=== PATIENT | female | born 1955 | race Caucasian/White ===

== ENCOUNTER 2020-01-22 12:48 | Outpatient (CLI) | payer MEDICARE, MEDICAID ==
--- NOTE | 2020-02-19 10:14 | MMO ---
Bilateral MAMMO Bilat Screen [facility]. CLINICAL HISTORY: Patient is 64 years old and is seen for screening. The patient has no family history of breast cancer. The patient has no personal history of cancer. VIEWS: The views performed were: bilateral craniocaudal with tomosynthesis and bilateral mediolateral oblique with tomosynthesis. This study has been interpreted with the assistance of computer-aided detection. MAMMOGRAM FINDINGS: There are scattered fibroglandular densities. There are no suspicious masses, suspicious calcifications, or new areas of architectural distortion. IMPRESSION: THERE IS NO MAMMOGRAPHIC EVIDENCE OF MALIGNANCY. A ROUTINE FOLLOW-UP MAMMOGRAM IN 1 YEAR IS RECOMMENDED. THE RESULTS OF THIS EXAM WERE SENT TO THE PATIENT. ACR BI-RADS Category 1 - Negative MAMMOGRAPHY NOTE: 1. A negative mammogram report should not delay a biopsy if a dominant of clinically suspicious mass is present. 2. Approximately 10% to 15% of breast cancers are not detected by mammography. 3. Adenosis and dense breasts may obscure an underlying neoplasm. Reported by: WICHO IVY MD Electonically Signed: [id number]
== END 2020-01-22 12:49 | disposition home or self-care (01) ==
LOC: BICMAMMO 12:48
PROVIDERS: ATTEND Registered Nurse
DX: Z12.31 Encounter for screening mammogram for malignant neoplasm of breast (principal)
CPT/HCPCS: 77063; 77067

== ENCOUNTER 2020-12-03 11:00 | Inpatient (IN) | payer MEDICARE, MEDICAID ==
[2020-12-21] MEDS ORDERED: Gabapentin 300 MG CAP ONE (10:09)
[2020-12-21] MEDS ORDERED: Acetaminophen 500 MG TAB ONE (10:09)
[2020-12-21] MEDS ORDERED: cefOXitin Sodium/Dextrose 2 GM/50 ML BAG ONE ×3 (10:09→18:12)
[2020-12-21] MEDS ORDERED: Ketorolac Tromethamine 30 MG/ML VIAL ONE ×2 (11:29→14:34)
[2020-12-21] MEDS ORDERED: CeleCOXIB 100 MG CAP ONE (11:33)
[2020-12-21] MEDS ORDERED: Fentanyl 100 MCG/2 ML VIAL ONE ×2 (12:48→18:08)
[2020-12-21] MEDS ORDERED: Midazolam HCl 2 mg/2 ml Vial ONE ×2 (12:48→13:40)
[2020-12-21] MEDS ORDERED: Fentanyl 250 MCG/5 ML VIAL ONE (13:40)
[2020-12-21] MEDS ORDERED: Lidocaine 2% Jelly 5 ML TUBE ONE (13:41)
[2020-12-21] MEDS ORDERED: SUGAMMADEX SODIUM 500 MG/5 ML VIAL ONE (13:42)
[2020-12-21] MEDS ORDERED: Lidocaine 1% w/Epinephrine 1:100K 20 ML VIAL ONE ×3 (13:53→19:29)
[2020-12-21] MEDS ORDERED: Bupivacaine 0.25% HCL 30 ML VIAL ONE (13:53)
[2020-12-21] MEDS ORDERED: Famotidine/PF 20 mg/2ml Vial ONE (14:05)
[2020-12-21] MEDS ORDERED: Vecuronium 10 MG VIAL ONE (14:34)
[2020-12-21] MEDS ORDERED: Lidocaine 1% PF 5 ML VIAL ONE (14:34)
[2020-12-21] MEDS ORDERED: Ondansetron PF 4 MG/2 ML Vial ONE (14:34)
[2020-12-21] MEDS ORDERED: PHENYLEPHRINE-NS 100 MCG/ML 10 ML SYRINGE ONE ×2 (14:34→18:30)
[2020-12-21] MEDS ORDERED: ePHEDrine Sulfate 50 MG/10 ML VIAL ONE (14:34)
[2020-12-21] MEDS ORDERED: Bupivacaine HCl 0.5%/Epinephrine 1:200,000/PF 30 ml Vial ONE (14:34)
[2020-12-21] MEDS ORDERED: Rocuronium Bromide 10 MG/ML (10ML VIAL) ONE (14:34)
[2020-12-21] MEDS ORDERED: Dexamethasone 20 MG/5 ML VIAL ONE (14:34)
[2020-12-21] MEDS ORDERED: PROPOFOL 200 MG/20 ML VIAL ONE (14:34)
[2020-12-21] MEDS ORDERED: SUGAMMADEX SODIUM 200 MG/2 ML VIAL ONE (19:51)
[2020-12-21] MEDS ORDERED: Promethazine HCl 25 MG/ML VIAL SLOW IVP PRN (20:24)
[2020-12-21] MEDS ORDERED: Promethazine HCl 25 MG/ML VIAL IM PRN ×2 (20:24→20:34)
[2020-12-21] MEDS ORDERED: Ondansetron HCl/PF 4 MG/2 ML Vial IVP PRN (20:24)
[2020-12-21] MEDS ORDERED: PACU-Morphine 4MG/ML VIAL SLOW IVP PRN (20:24)
[2020-12-21] MEDS ORDERED: hydrALAZINE 20 MG/ML VIAL SLOW IVP PRN (20:34)
[2020-12-21] MEDS ORDERED: Morphine 4 MG/ML VIAL SLOW IVP PRN ×2 (20:34→20:49)
[2020-12-21] MEDS ORDERED: Ondansetron PF 4 MG/2 ML Vial IVP PRN (20:34)
[2020-12-21] MEDS: Famotidine 20 MG TAB PO SCH (22:11)
[2020-12-21] MEDS: Atorvastatin Calcium 40 MG TAB PO SCH (22:11)
[2020-12-21] MEDS: metFORMIN 500 MG TAB PO SCH (22:11)
[2020-12-21] MEDS: D5 1/2 NS w/20 mEq KCL 1,000 ML IV SCH (22:13)
[2020-12-21] MEDS: Famotidine/PF 20 mg/2ml Vial SLOW IVP SCH (22:14)
[2020-12-21] MEDS: Ketorolac Tromethamine 30 MG/ML VIAL IVP SCH (23:47)
[2020-12-21 23:58] VITALS: BMI 29.9
[2020-12-22] MEDS: Ketorolac Tromethamine 30 MG/ML VIAL IVP SCH ×3 (06:08→17:50)
[2020-12-22] MEDS: D5 1/2 NS w/20 mEq KCL 1,000 ML IV SCH (06:08)
[2020-12-22] MEDS: HYDROcodone/Acetaminophen 7.5/325 mg Tablet PO PRN (06:24)
[2020-12-22] MEDS ORDERED: Dextrose 5% in Water 1,000 ML IV PRN ×2 (06:45→07:31)
[2020-12-22] MEDS ORDERED: Dextrose 50% Abboject 50 ML SYRINGE IVP PRN (06:45)
[2020-12-22] MEDS ORDERED: Insulin Regular 300 UNITS/3 ML VIAL SC PRN (06:45)
[2020-12-22 06:55] LABS: #Lymphocytes 0.7 thou/uL (1.20-3.40); #Monocytes 0.9 thou/uL (0.11-0.59); #Neutrophils 10.4 thou/uL (1.40-6.50); %Eosinophils 0.1 % (0.0-10.0); %Lymphocytes 5.9 % (21.0-51.0); %Monocytes 7.5 % (0.0-10.0); %Neutrophils 86.6 % (42.0-75.0); Hemoglobin 11.3 g/dL (12.0-16.0); Mean Corpuscular Hemoglobin 30.2 pg (27.0-31.0); Mean Corpuscular Volume 91.4 fL (78.0-98.0); Mean Platelet Volume 7.4 fL (7.4-10.4); Platelet Count 235 thou/uL (130-400); Red Blood Cell (RBC) Count 3.75 mill/uL (4.20-5.40)
[2020-12-22] MEDS: Insulin Regular 300 UNITS/3 ML VIAL SC PRN ×3 (07:13→16:45)
[2020-12-22 07:15] LABS: Anion Gap 13 mmol/L (10-20); BUN (Urea Nitrogen) 12 mg/dL (9.8-20.1); Calc. Creatinine Clearance 84 mL/min (70-130); Calcium 8.8 mg/dL (7.8-10.44); Carbon Dioxide 21 mmol/L (23-31); Chloride 106 mmol/L (98-107); Glucose 262 mg/dL (80-115); Potassium 4.7 mmol/L (3.5-5.1); Sodium 135 mmol/L (136-145)
[2020-12-22] MEDS ORDERED: HumaLOG 300 UNITS/3 ML VIAL SC PRN (07:31)
[2020-12-22] MEDS ORDERED: Dextrose 50% Abboject 50 ML SYRINGE SLOW IVP PRN (07:31)
[2020-12-22] MEDS: metFORMIN 500 MG TAB PO SCH ×2 (08:44→20:50)
[2020-12-22] MEDS: Famotidine 20 MG TAB PO SCH ×2 (08:44→20:50)
[2020-12-22] MEDS: Famotidine/PF 20 mg/2ml Vial SLOW IVP SCH ×2 (08:46→20:50)
[2020-12-22] MEDS: Enoxaparin Sodium 40 MG/0.4 ML SYRINGE SC SCH (09:42)
[2020-12-22] MEDS ORDERED: D5 1/2 NS w/20 mEq KCL 1,000 ML IV SCH (17:00)
[2020-12-22] MEDS: Lactated Ringer's 1,000 ML IV SCH (17:51)
[2020-12-22] MEDS: Atorvastatin Calcium 40 MG TAB PO SCH (20:50)
[2020-12-23] MEDS: Ketorolac Tromethamine 30 MG/ML VIAL IVP SCH ×4 (00:41→17:44)
[2020-12-23] MEDS: D5 1/2 NS w/20 mEq KCL 1,000 ML IV SCH (01:52)
[2020-12-23] MEDS: HYDROcodone/Acetaminophen 7.5/325 mg Tablet PO PRN ×2 (05:28→14:35)
[2020-12-23] MEDS: Lactated Ringer's 1,000 ML IV SCH ×2 (05:29→17:45)
[2020-12-23 06:19] LABS: #Eosinphils 0.1 thou/uL (0.0-0.7); #Lymphocytes 0.9 thou/uL (1.20-3.40); #Monocytes 0.6 thou/uL (0.11-0.59); %Basophils 0.3 % (0.0-1.0); %Eosinophils 1.7 % (0.0-10.0); %Monocytes 7.6 % (0.0-10.0); %Neutrophils 78.4 % (42.0-75.0); Hemoglobin 10.2 g/dL (12.0-16.0); Mean Corpuscular HGB CONC 31.9 g/dL (32.0-36.0); Mean Corpuscular Hemoglobin 29.1 pg (27.0-31.0); Mean Platelet Volume 7.1 fL (7.4-10.4); Platelet Count 195 thou/uL (130-400); RBC Distribution Width 13.9 % (11.5-14.5); Red Blood Cell (RBC) Count 3.53 mill/uL (4.20-5.40); White Blood Cell (WBC) Count 7.7 thou/uL (4.8-10.8)
[2020-12-23 06:47] LABS: Anion Gap 9 mmol/L (10-20); Calc. Creatinine Clearance 106 mL/min (70-130); Carbon Dioxide 24 mmol/L (23-31); Chloride 110 mmol/L (98-107); Glucose 136 mg/dL (80-115); Potassium 4.3 mmol/L (3.5-5.1); Sodium 139 mmol/L (136-145)
[2020-12-23 06:56] LABS: BUN (Urea Nitrogen) 7 mg/dL (9.8-20.1)
[2020-12-23] MEDS: Famotidine/PF 20 mg/2ml Vial SLOW IVP SCH ×2 (09:21→21:07)
[2020-12-23] MEDS: metFORMIN 500 MG TAB PO SCH ×2 (09:24→21:07)
[2020-12-23] MEDS: Famotidine 20 MG TAB PO SCH ×2 (09:24→21:07)
[2020-12-23] MEDS: Enoxaparin Sodium 40 MG/0.4 ML SYRINGE SC SCH (11:02)
[2020-12-23] MEDS ORDERED: Lactated Ringer's 1,000 ML IV SCH (18:45)
[2020-12-23] MEDS: Atorvastatin Calcium 40 MG TAB PO SCH (21:07)
[2020-12-24] MEDS: Ketorolac Tromethamine 30 MG/ML VIAL IVP SCH ×2 (00:17→06:01)
[2020-12-24] MEDS: Famotidine 20 MG TAB PO SCH (07:57)
[2020-12-24] MEDS: metFORMIN 500 MG TAB PO SCH (07:57)
[2020-12-24] MEDS: HYDROcodone/Acetaminophen 7.5/325 mg Tablet PO PRN (08:00)
[2020-12-24] MEDS: Famotidine/PF 20 mg/2ml Vial SLOW IVP SCH (08:01)
[2020-12-24 08:23] VITALS: BP 164/87; TEMP 97.4
[2020-12-24] MEDS: Enoxaparin Sodium 40 MG/0.4 ML SYRINGE SC SCH (10:36)
== END 2020-12-24 11:45 | disposition home or self-care (01) | DRG 331 ==
LOC: SURG A 12-21 09:47 → EDSTATUS 12-21 10:45 → SURG B 12-21 21:34
PROVIDERS: ADMIT Specialist; ATTEND Specialist
PROC: 0UT94ZZ Resection of Uterus, Percutaneous Endoscopic Approach (ICD-10-PCS; principal; 2020-12-21)
PROC: 0D1B4Z4 Bypass Ileum to Cutaneous, Percutaneous Endoscopic Approach (ICD-10-PCS; 2020-12-21)
PROC: 0DTP4ZZ Resection of Rectum, Percutaneous Endoscopic Approach (ICD-10-PCS; 2020-12-21)
PROC: 0UT24ZZ Resection of Bilateral Ovaries, Percutaneous Endoscopic Approach (ICD-10-PCS; 2020-12-21)
PROC: 0UT74ZZ Resection of Bilateral Fallopian Tubes, Percutaneous Endoscopic Approach (ICD-10-PCS; 2020-12-21)
PROC: 8E0W4CZ Robotic Assisted Procedure of Trunk Region, Percutaneous Endoscopic Approach (ICD-10-PCS; 2020-12-21)
DX: C20 Malignant neoplasm of rectum (principal); D25.9 Leiomyoma of uterus, unspecified; Z88.1 Allergy status to other antibiotic agents; Z88.8 Allergy status to other drugs, medicaments and biological substances; Z91.018 Allergy to other foods
CPT/HCPCS: 36415; 36416; 80048; 85025; 86850; 86900; 86901; 88305; 88307; 88309; J0690; J0694; J1100; J1650; J1815; J1885; J2250; J2405; J2704; J3010; J3480; S0020; S0028

== ENCOUNTER 2020-12-16 10:49 | Outpatient (CLI) | payer MEDICARE, MEDICAID ==
[2020-12-16 13:40] LABS: #Eosinphils 0.2 10x3/uL (0.0-0.5); #Monocytes 0.6 10x3/uL (0.0-1.1); #Neutrophils 3.7 10x3/uL (1.5-8.4); %Basophils 0.7 % (0.0-2.0); %Eosinophils 3.8 % (0.0-6.0); %Lymphocytes 20.1 % (18.0-47.0); %Monocytes 10.5 % (0.0-10.0); Hemoglobin 11.9 g/dL (12.0-15.5); Mean Corpuscular HGB CONC 32.2 g/dL (32.0-36.0); Mean Corpuscular Hemoglobin 29.5 pg (27.0-33.0); Mean Corpuscular Volume 91.6 fl (81.6-98.3); Mean Platelet Volume 9.4 fl (7.4-10.4); Platelet Count 280 10x3/uL (150-450); RBC Distribution Width 14.6 % (11.5-14.5); Red Blood Cell (RBC) Count 4.04 10x6/uL (3.90-5.03); White Blood Cell (WBC) Count 5.8 10x3/uL (3.5-10.5)
[2020-12-16 14:31] LABS: BHCG - Serum Negative (NEGATIVE)
[2020-12-16 14:32] LABS: Pregs Control Background? CLEAR/WHITE (CLR/WHITE); Pregs Control Bar Appear? YES (CONTROL BAR)
[2020-12-16 14:34] LABS: Anion Gap 14 mmol/L (10-20); BUN (Urea Nitrogen) 13 mg/dL (9.8-20.1); Calc. Creatinine Clearance 0 mL/min (70-130); Calcium 9.6 mg/dL (7.8-10.44); Carbon Dioxide 28 mmol/L (23-31); Chloride 106 mmol/L (98-107); Potassium 4.3 mmol/L (3.5-5.1); Sodium 144 mmol/L (136-145)
[2020-12-16 14:38] LABS: Glucose 53 mg/dL (80-115)
[2020-12-16 20:50] LABS: Hemoglobin A1c 5.5 % (4.0-6.0)
[2020-12-16 21:21] LABS: SARS-CoV-2 PCR by NAA Not Detected (NotDetected)
== END 2020-12-16 10:50 | disposition home or self-care (01) ==
LOC: LABBT 10:49
PROVIDERS: ATTEND Specialist
DX: Z01.818 Encounter for other preprocedural examination (principal); C20 Malignant neoplasm of rectum; Z20.822 Contact with and (suspected) exposure to COVID-19
CPT/HCPCS: 71046; 80048; 83036; 84703; 85025; 86850; 86900; 86901; U0003; U0005; 87635; 93005; 93010

== ENCOUNTER 2021-02-23 05:43 | Inpatient (IN) | payer MEDICARE, MEDICAID ==
[2021-02-22 09:47] VITALS: BMI 29.5
[2021-02-23] MEDS ORDERED: Ketorolac Tromethamine 30 MG/ML VIAL ONE (05:59)
[2021-02-23] MEDS ORDERED: Acetaminophen 500 MG TAB ONE (05:59)
[2021-02-23] MEDS ORDERED: cefOXitin Sodium/Dextrose 2 GM/50 ML BAG ONE (06:00)
[2021-02-23 06:47] LABS: #Eosinphils 0.7 thou/uL (0.0-0.7); #Lymphocytes 1.2 thou/uL (1.20-3.40); #Monocytes 0.5 thou/uL (0.11-0.59); #Neutrophils 3.8 thou/uL (1.40-6.50); %Basophils 0.7 % (0.0-1.0); %Lymphocytes 18.9 % (21.0-51.0); %Monocytes 7.5 % (0.0-10.0); %Neutrophils 61.9 % (42.0-75.0); Hemoglobin 11.7 g/dL (12.0-16.0); Mean Corpuscular HGB CONC 33.2 g/dL (32.0-36.0); Mean Corpuscular Hemoglobin 28.9 pg (27.0-31.0); Mean Corpuscular Volume 87.1 fL (78.0-98.0); Mean Platelet Volume 7.7 fL (7.4-10.4); Platelet Count 282 thou/uL (130-400); RBC Distribution Width 13.5 % (11.5-14.5); Red Blood Cell (RBC) Count 4.05 mill/uL (4.20-5.40); White Blood Cell (WBC) Count 6.2 thou/uL (4.8-10.8)
[2021-02-23 06:55] LABS: Hemoglobin A1c 5.5 % (4.0-6.0)
[2021-02-23 07:08] LABS: ALT (SGPT) 19 U/L (8-55); AST (SGOT) 21 U/L (5-34); Albumin 4.2 g/dL (3.4-4.8); Alkaline Phosphatase 114 U/L (40-110); Anion Gap 12 mmol/L (10-20); BUN (Urea Nitrogen) 5 mg/dL (9.8-20.1); Bilirubin, Total 0.5 mg/dL (0.2-1.2); Calc. Creatinine Clearance 83 mL/min (70-130); Carbon Dioxide 27 mmol/L (23-31); Chloride 106 mmol/L (98-107); Globulin 3.5 g/dL (2.4-3.5); Glucose 97 mg/dL (80-115); Potassium 3.8 mmol/L (3.5-5.1); Protein, Total 7.7 g/dL (5.8-8.1); Sodium 141 mmol/L (136-145)
[2021-02-23] MEDS ORDERED: Midazolam HCl 2 mg/2 ml Vial ONE (07:40)
[2021-02-23] MEDS ORDERED: Fentanyl 100 MCG/2 ML VIAL ONE ×3 (07:40→13:43)
[2021-02-23] MEDS ORDERED: Dexmedetomidine 200 MCG/2 ML VIAL ONE (07:41)
[2021-02-23] MEDS ORDERED: Phenylephrine 10 MG/ML VIAL ONE (07:41)
[2021-02-23] MEDS ORDERED: Bupivacaine HCl 0.5%/Epinephrine 1:200,000/PF 30 ml Vial ONE (08:28)
[2021-02-23] MEDS ORDERED: Lidocaine 1% PF 5 ML VIAL ONE (08:28)
[2021-02-23] MEDS ORDERED: PROPOFOL 200 MG/20 ML VIAL ONE (08:28)
[2021-02-23] MEDS ORDERED: Rocuronium Bromide 10 MG/ML (10ML VIAL) ONE (08:28)
[2021-02-23] MEDS ORDERED: ePHEDrine Sulfate 50 MG/10 ML VIAL ONE (08:28)
[2021-02-23] MEDS ORDERED: Glycopyrrolate 0.2 MG/ML 5 ML SYRINGE ONE (08:28)
[2021-02-23] MEDS ORDERED: Esmolol 100 MG/10 ML VIAL ONE (08:28)
[2021-02-23] MEDS ORDERED: Ondansetron PF 4 MG/2 ML Vial ONE (08:28)
[2021-02-23] MEDS ORDERED: Lidocaine 1% w/Epinephrine 1:100K 20 ML VIAL ONE (08:50)
[2021-02-23] MEDS ORDERED: Morphine 4 MG/ML VIAL SLOW IVP PRN (10:07)
[2021-02-23] MEDS ORDERED: Insulin Regular 300 UNITS/3 ML VIAL SC PRN (10:07)
[2021-02-23] MEDS ORDERED: Morphine 2 MG/ML VIAL SLOW IVP PRN (10:07)
[2021-02-23] MEDS ORDERED: hydrALAZINE 20 MG/ML VIAL SLOW IVP PRN (10:07)
[2021-02-23] MEDS ORDERED: Ondansetron PF 4 MG/2 ML Vial IVP PRN (10:07)
[2021-02-23] MEDS ORDERED: Promethazine HCl 25 MG/ML VIAL IM PRN ×2 (10:07→10:19)
[2021-02-23] MEDS ORDERED: Ondansetron HCl/PF 4 MG/2 ML Vial IVP PRN (10:19)
[2021-02-23] MEDS ORDERED: Promethazine HCl 25 MG/ML VIAL IVPB PRN (10:19)
[2021-02-23] MEDS: Ketorolac Tromethamine 30 MG/ML VIAL IVP SCH ×2 (15:04→17:30)
[2021-02-23] MEDS: Sodium Chloride 0.9% 1,000 ML IV SCH ×2 (15:05→17:35)
[2021-02-23] MEDS: metFORMIN 500 MG TAB PO SCH (17:30)
[2021-02-23] MEDS: Gabapentin 300 MG CAP PO SCH (20:02)
[2021-02-23] MEDS: Famotidine 20 MG TAB PO SCH (20:02)
[2021-02-23] MEDS: Atorvastatin Calcium 40 MG TAB PO SCH (20:02)
[2021-02-23] MEDS: Famotidine/PF 20 mg/2ml Vial SLOW IVP SCH (20:03)
[2021-02-23] MEDS: Enoxaparin Sodium 40 MG/0.4 ML SYRINGE SC SCH (20:03)
[2021-02-24] MEDS: Ketorolac Tromethamine 30 MG/ML VIAL IVP SCH ×5 (00:06→23:47)
[2021-02-24] MEDS: Sodium Chloride 0.9% 1,000 ML IV SCH ×3 (00:12→17:38)
[2021-02-24 06:34] LABS: Anion Gap 11 mmol/L (10-20); BUN (Urea Nitrogen) 5 mg/dL (9.8-20.1); Calc. Creatinine Clearance 95 mL/min (70-130); Calcium 8.7 mg/dL (7.8-10.44); Carbon Dioxide 26 mmol/L (23-31); Chloride 105 mmol/L (98-107); Glucose 113 mg/dL (80-115); Potassium 4.1 mmol/L (3.5-5.1); Sodium 138 mmol/L (136-145)
[2021-02-24 06:41] LABS: #Eosinphils 0.2 thou/uL (0.0-0.7); #Lymphocytes 0.8 thou/uL (1.20-3.40); #Monocytes 0.5 thou/uL (0.11-0.59); %Basophils 0.4 % (0.0-1.0); %Eosinophils 3.7 % (0.0-10.0); %Lymphocytes 13.9 % (21.0-51.0); %Monocytes 8.4 % (0.0-10.0); %Neutrophils 73.6 % (42.0-75.0); Hemoglobin 10.2 g/dL (12.0-16.0); Mean Corpuscular HGB CONC 33.3 g/dL (32.0-36.0); Mean Corpuscular Hemoglobin 29.2 pg (27.0-31.0); Mean Corpuscular Volume 87.8 fL (78.0-98.0); Mean Platelet Volume 7.7 fL (7.4-10.4); Platelet Count 209 thou/uL (130-400); RBC Distribution Width 13.5 % (11.5-14.5); Red Blood Cell (RBC) Count 3.49 mill/uL (4.20-5.40); White Blood Cell (WBC) Count 5.4 thou/uL (4.8-10.8)
[2021-02-24] MEDS: metFORMIN 500 MG TAB PO SCH ×2 (09:25→17:38)
[2021-02-24] MEDS: Aspirin 81 mg Enteric Coated Tablet PO SCH (09:25)
[2021-02-24] MEDS: Famotidine 20 MG TAB PO SCH ×2 (09:25→20:32)
[2021-02-24] MEDS: Famotidine/PF 20 mg/2ml Vial SLOW IVP SCH ×2 (09:27→20:33)
[2021-02-24] MEDS ORDERED: HYDROcodone/Acetaminophen 7.5/325 mg Tablet PO PRN (09:55)
[2021-02-24] MEDS: HYDROcodone/Acetaminophen 7.5/325 mg Tablet PO PRN ×2 (10:22→20:31)
[2021-02-24] MEDS: Gabapentin 300 MG CAP PO SCH (20:32)
[2021-02-24] MEDS: Atorvastatin Calcium 40 MG TAB PO SCH (20:33)
[2021-02-24] MEDS: Enoxaparin Sodium 40 MG/0.4 ML SYRINGE SC SCH (20:33)
[2021-02-25] MEDS: Ketorolac Tromethamine 30 MG/ML VIAL IVP SCH ×2 (05:33→12:25)
[2021-02-25] MEDS ORDERED: Sodium Chloride 0.9% 1,000 ML IV SCH (07:46)
[2021-02-25] MEDS: HYDROcodone/Acetaminophen 7.5/325 mg Tablet PO PRN (07:46)
[2021-02-25] MEDS: Famotidine 20 MG TAB PO SCH (07:47)
[2021-02-25] MEDS: metFORMIN 500 MG TAB PO SCH (07:47)
[2021-02-25] MEDS: Sodium Chloride 0.9% 1,000 ML IV SCH ×2 (07:49→07:51)
[2021-02-25] MEDS: Aspirin 81 mg Enteric Coated Tablet PO SCH (08:01)
[2021-02-25] MEDS: Famotidine/PF 20 mg/2ml Vial SLOW IVP SCH (08:01)
[2021-02-25 08:19] LABS: #Eosinphils 0.2 thou/uL (0.0-0.7); #Lymphocytes 0.8 thou/uL (1.20-3.40); #Monocytes 0.4 thou/uL (0.11-0.59); #Neutrophils 4.6 thou/uL (1.40-6.50); %Basophils 0.2 % (0.0-1.0); %Eosinophils 3.8 % (0.0-10.0); %Lymphocytes 13.5 % (21.0-51.0); %Monocytes 7.1 % (0.0-10.0); %Neutrophils 75.4 % (42.0-75.0); Hemoglobin 10.1 g/dL (12.0-16.0); Mean Corpuscular HGB CONC 33.6 g/dL (32.0-36.0); Mean Corpuscular Hemoglobin 29.3 pg (27.0-31.0); Mean Corpuscular Volume 87.4 fL (78.0-98.0); Platelet Count 210 thou/uL (130-400); RBC Distribution Width 13.4 % (11.5-14.5); Red Blood Cell (RBC) Count 3.45 mill/uL (4.20-5.40); White Blood Cell (WBC) Count 6.1 thou/uL (4.8-10.8)
[2021-02-25 08:44] LABS: Anion Gap 12 mmol/L (10-20); BUN (Urea Nitrogen) 5 mg/dL (9.8-20.1); Calc. Creatinine Clearance 98 mL/min (70-130); Calcium 8.6 mg/dL (7.8-10.44); Carbon Dioxide 24 mmol/L (23-31); Chloride 106 mmol/L (98-107); Glucose 109 mg/dL (80-115); Potassium 3.6 mmol/L (3.5-5.1); Sodium 138 mmol/L (136-145)
[2021-02-25 11:47] VITALS: BP 99/65; TEMP 98.3
== END 2021-02-25 14:31 | disposition home or self-care (01) | DRG 330 ==
LOC: SURG A 05:43
PROVIDERS: ADMIT Specialist; ATTEND Specialist
PROC: 0DBB0ZZ Excision of Ileum, Open Approach (ICD-10-PCS; principal; 2021-02-23)
DX: Z43.2 Encounter for attention to ileostomy (principal); C20 Malignant neoplasm of rectum; D64.9 Anemia, unspecified; F41.9 Anxiety disorder, unspecified; E78.5 Hyperlipidemia, unspecified; E11.9 Type 2 diabetes mellitus without complications; G43.909 Migraine, unspecified, not intractable, without status migrainosus; I10 Essential (primary) hypertension; Z86.73 Personal history of transient ischemic attack (TIA), and cerebral infarction without residual deficits; Z88.1 Allergy status to other antibiotic agents; Z88.8 Allergy status to other drugs, medicaments and biological substances; Z91.018 Allergy to other foods; Z79.82 Long term (current) use of aspirin; Z79.4 Long term (current) use of insulin; Z79.899 Other long term (current) drug therapy
CPT/HCPCS: 36415; 36416; 80048; 80053; 83036; 85025; J0694; J1650; J1885; J2250; J2270; J2370; J2405; J2704; J3010

== ENCOUNTER 2021-03-29 14:20 | Outpatient (CLI) | payer MEDICARE, MEDICAID | END 2021-03-29 14:21 | disposition home or self-care (01) | LOC: RAD 14:20 | PROVIDERS: ATTEND Registered Nurse | DX: M25.552 Pain in left hip (principal) | CPT/HCPCS: 72190 ==

== ENCOUNTER 2021-08-27 09:43 | Outpatient (CLI) | payer MEDICARE, MEDICAID ==
[2021-08-27] MEDS ORDERED: Magnevist 469MG/ML 20 ML VIAL ONE (10:21)
== END 2021-08-27 09:44 | disposition home or self-care (01) ==
LOC: MRI 09:43
PROVIDERS: ATTEND Internal Medicine Hematology & Oncology
DX: C20 Malignant neoplasm of rectum (principal); K86.9 Disease of pancreas, unspecified; R93.5 Abnormal findings on diagnostic imaging of other abdominal regions, including retroperitoneum; E04.1 Nontoxic single thyroid nodule
CPT/HCPCS: 74183; 76536

== ENCOUNTER 2021-09-15 12:11 | Day surgery (SDC) | payer MEDICARE, MEDICAID ==
[2021-09-14 11:08] VITALS: BMI 31.8
[~2021-09-15 12:11] MED LIST: FLU VACC QS2021-22(65YR UP)/PF 240 MCG/0.7 ML SYRINGE IM ONE
[2021-09-15] MEDS ORDERED: Sodium Bicarbonate 2.5 MEQ/5 ML VIAL ONE (12:47)
[2021-09-15] MEDS ORDERED: Lidocaine 1% PF 5 ML VIAL ONE (12:47)
[2021-09-15 14:10] VITALS: BP 151/95; TEMP 98
== END 2021-09-15 13:55 | disposition home or self-care (01) ==
LOC: ULT 12:11
PROVIDERS: ATTEND Internal Medicine Hematology & Oncology
PROC: 0G9H3ZX Drainage of Right Thyroid Gland Lobe, Percutaneous Approach, Diagnostic (ICD-10-PCS; principal; 2021-09-15)
DX: E04.1 Nontoxic single thyroid nodule (principal); Z79.4 Long term (current) use of insulin; Z79.84 Long term (current) use of oral hypoglycemic drugs; Z79.899 Other long term (current) drug therapy; Z88.1 Allergy status to other antibiotic agents; Z88.8 Allergy status to other drugs, medicaments and biological substances; Z91.018 Allergy to other foods
CPT/HCPCS: 60100; 76942; 88173; 88305

== ENCOUNTER 2022-02-21 08:06 | Outpatient (CLI) | payer MEDICARE, MEDICAID ==
[2022-02-21] MEDS ORDERED: Iopamidol 370 76% 100 ML VIAL ONE (11:26)
== END 2022-02-21 08:07 | disposition home or self-care (01) ==
LOC: CT 08:06
PROVIDERS: ATTEND Internal Medicine Hematology & Oncology
DX: C20 Malignant neoplasm of rectum (principal); K86.2 Cyst of pancreas; K57.30 Diverticulosis of large intestine without perforation or abscess without bleeding; N28.1 Cyst of kidney, acquired; E04.2 Nontoxic multinodular goiter; M84.48XA Pathological fracture, other site, initial encounter for fracture; Z98.890 Other specified postprocedural states
CPT/HCPCS: 71260; 74177; 82565; Q9967